=== PATIENT | female | born 1980 | race Caucasian/White ===

== ENCOUNTER 2019-12-12 12:13 | Day surgery (SDC) | payer OTHER ==
[2019-12-09 15:49] VITALS: BMI 20.6
[~2019-12-12 12:13] MED LIST: LACTATED RINGERS 1,000 ML IV SCH; LIDOCAINE 1% (10MG/ML) FOR IV START INTRADERMA PRN
[2019-12-12 13:17] VITALS: TEMP 98.6
[2019-12-12] MEDS ORDERED: PROPOFOL 10 MG/ML 20 ML VIAL IV ONE (13:39)
--- NOTE | 2019-12-12 13:59 | P.PCN ---
Date of Procedure: 12/12/19 Procedure(s) Performed: BRIEF HISTORY: Patient is a 39-year-old pleasant female scheduled for an elective colonoscopy as a part of evaluation of chronic constipation of the left. Lately has bowel movements once a month. She is hence scheduled for a colonoscopy to evaluate further. PROCEDURE PERFORMED: Colonoscopy up to hepatic flexure. PREOPERATIVE DIAGNOSIS: Chronic constipation. IV sedation per Anesthesia. PROCEDURE: After informed consent was obtained, the patient, was brought into the endoscopy unit. IV sedation was administered by Anesthesia under continuous monitoring. Digital rectal examination was normal. Initially the Olympus CF-160 flexible video colonoscope was then inserted in the rectum, gradually advanced into the hepatic Flexure. Because of extremely redundant colon was not able to advance the scope any further. Careful examination was performed as the scope was gradually being withdrawn. Mucosa of the, transverse colon, descending colon, sigmoid colon, and rectum appeared normal. Retroflexion was performed in the rectum and no lesions were seen. The patient tolerated the procedure well. IMPRESSION: Extremely tortuous and redundant colon Scope was advanced up to the hepatic flexure and appeared normal No evidence of colorectal neoplasia RECOMMENDATIONS: Findings of this examination were discussed with the patient as well as a family. She was advised to continue with osmotic laxatives and high-fiber diet..
[2019-12-12] MEDS ORDERED: IV FLUID CONTINUATION 1,000 ML IV ONE (14:01)
[2019-12-12 14:04] VITALS: RESP 18
[2019-12-12 14:23] VITALS: BP 103/61; PULSE 71
== END 2019-12-12 14:48 | disposition home or self-care (01) ==
LOC: ORWHC2ENDO 12:13
PROVIDERS: ATTEND Internal Medicine Gastroenterology
DX: K59.09 Other constipation (principal); Q43.8 Other specified congenital malformations of intestine; Z86.718 Personal history of other venous thrombosis and embolism; Z98.890 Other specified postprocedural states; Z90.89 Acquired absence of other organs; Z79.899 Other long term (current) drug therapy
CPT/HCPCS: 81025; 45378; J2704